=== PATIENT | female | born 1995 | race Caucasian/White ===

== ENCOUNTER 2016-12-13 21:22 | Emergency (ER) | payer SELFPAY ==
--- NOTE | 2016-12-13 22:48 | NUR ---
PATIENT LEFT WITHOUT BEING SEEN BY DR. MAZA. NO FURTHER CARE PROVIDED FOR PATIENT.
== END 2016-12-13 22:48 | disposition left against medical advice (07) ==
LOC: MED 21:22
DX: R51 Headache (principal); Z53.21 Procedure and treatment not carried out due to patient leaving prior to being seen by health care provider

== ENCOUNTER 2024-02-09 20:10 | Emergency (ER) | payer BC ==
[~2024-02-09] VITALS: Ht 165.1 cm; Wt 93.9 kg
[2024-02-09 20:21] VITALS: BP 149/99; PULSE 84; RESP 16; TEMP 98.6; O2SAT 99
[2024-02-09 21:29] LABS: CALCIUM 9.4 mg/dL (8.5-10.1); CARBON DIOXIDE 27.6 mmol/L (21-32); CREATININE 0.8 mg/dL (0.6-1.3); POTASSIUM 3.6 mmol/L (3.5-5.1)
[2024-02-09 21:30] LABS: ALBUMIN 3.8 g/dL (3.4-5.0); TOTAL BILIRUBIN 1.1 mg/dL (0.0-1.0); TOTAL PROTEIN, SERUM 7.7 g/dL (6.4-8.2)
[2024-02-09 21:32] LABS: BASOPHILS % (AUTO) 0.4 % (0.0-2.0); EOSINOPHILS # (AUTO) 0.2 K/uL (0-0.4); EOSINOPHILS % (AUTO) 1.7 % (0.0-4.0); HEMOGLOBIN 9.5 g/dL (12.0-16.0); LYMPHOCYTES # (AUTO) 1.6 K/uL (2.5-16.5); LYMPHOCYTES % (AUTO) 18.4 % (20.5-51.1); MEAN CORPUSCULAR HEMOGLOBIN 20 pg (27-31); MEAN CORPUSCULAR HGB CONC 32 g/dL (33-37); MONOCYTES # (AUTO) 0.7 K/uL (0.8-1.0); MONOCYTES % (AUTO) 7.9 % (1.7-9.3); NEUTROPHILS # (AUTO) 6.3 K/uL (1.8-7.7); NEUTROPHILS % (AUTO) 71.6 % (42.2-75.2); PLATELET COUNT (AUTO) 216 K/uL (140-450); RED BLOOD CELL COUNT(AUTO) 4.76 MIL/uL (4.20-5.40); WHITE BLOOD COUNT (AUTO) 8.9 K/uL (4.8-10.8)
[2024-02-09 22:27] LABS: APPEARANCE,URINE CLEAR (CLEAR); BILIRUBIN,URINE NEGATIVE (NEGATIVE); BLOOD, URINE 2+ (NEGATIVE); COLOR,URINE YELLOW (YELLOW); LEUKOCYTE ESTERASE ,URINE NEGATIVE (NEGATIVE); NITRITE, URINE NEGATIVE (NEGATIVE); PROTEIN,URINE NEGATIVE (NEGATIVE); UGLUCOSE NEGATIVE (NEGATIVE); UROBILINOGEN,URINE 0.2 EU/dL (0.2 - 1)
[2024-02-09 22:37] LABS: BACTERIA,URINE >30 (MANY) /HPF (None Seen); MUCUS,URINE 1+ /LPF (None Seen); SQUAMOUS EPITHELIAL CELL,UR 4-10 (MOD) /LPF (0-3 (FEW)); WBC,URINE 0-5 /HPF (0-5)
[2024-02-09 23:40] VITALS: O2SAT 99
[2024-02-10] MEDS ORDERED: BEN10 PO (03:19)
[2024-02-10] MEDS ORDERED: AZIT250T3 PO (03:19)
[2024-02-10] MEDS ORDERED: LOPE1TAB14 PO (03:19)
[2024-02-10] MEDS: KETOROLAC 30 MG/ML VIAL IVP ONE (03:30)
[2024-02-10 03:37] VITALS: O2SAT 99
[2024-02-10 03:38] VITALS: BP 149/99; PULSE 84; RESP 16; TEMP 98.6; O2SAT 99
== END 2024-02-10 03:38 | disposition home or self-care (01) ==
LOC: MED 20:10
DX: R10.31 Right lower quadrant pain (principal); R10.11 Right upper quadrant pain; R10.32 Left lower quadrant pain; R10.12 Left upper quadrant pain; R10.13 Epigastric pain; R11.0 Nausea; R19.7 Diarrhea, unspecified; Z20.822 Contact with and (suspected) exposure to COVID-19
CPT/HCPCS: 36415; 74177; 80053; 81001; 81025; 83690; 85025; 87086; 87426; 96374; 99285; J1885; Q9967